=== PATIENT | female | born 1975 | race Asian ===

== ENCOUNTER 2019-04-21 05:45 | Day surgery (SDC) | payer BC ==
[~2019-04-21] VITALS: Ht 154.9 cm; Wt 84.4 kg
[2019-04-21 06:43] LABS: HCG,QUAL RESULT NEGATIVE (NEGATIVE)
[2019-04-21] MEDS ORDERED: MIDAZOLAM HCL 5 MG/5 ML VIAL IVP ONE (07:40)
[2019-04-21] MEDS ORDERED: PROPOFOL 200MG/ 20ML VIAL (DIPRIVAN) IV ONE (07:40)
[2019-04-21] MEDS ORDERED: ONDANSETRON HCL 4 MG/2 ML VIAL IVP ONE (07:40)
[2019-04-21] MEDS ORDERED: NS 1000 ML IV.SOLN IV ONE (07:40)
[2019-04-21] MEDS ORDERED: SEVOFLURANE 15 MIN GAS INH ONE (07:40)
[2019-04-21] MEDS ORDERED: KETOROLAC TROMETHAMINE 30 MG VIAL IVP ONE (07:40)
[2019-04-21] MEDS ORDERED: NS IRRIG SOLN 1000 ML IR ONE (07:40)
[2019-04-21] MEDS ORDERED: fentaNYL CITRATE/PF 100 MCG/2 ML AMP IVP ONE (07:40)
[2019-04-21] MEDS ORDERED: LR 1,000 ML IV SCH (08:07)
[2019-04-21] MEDS ORDERED: MORPHINE 4 MG/ML INJ. SYRINGE IVP PRN ×3 (08:15)
[2019-04-21] MEDS ORDERED: METOCLOPRAMIDE HCL 10 MG/2 ML VIAL IVP PRN (08:15)
[2019-04-21] MEDS ORDERED: OXYCODONE/ACETAMINOPHEN 5-325 TABLET PO PRN ×2 (08:30)
[2019-04-21] MEDS ORDERED: ONDANSETRON HCL 4 MG/2 ML VIAL IVP PRN (08:30)
[2019-04-21] MEDS ORDERED: IBUPROFEN 800 MG TABLET PO PRN (08:30)
[2019-04-21] MEDS ORDERED: MORPHINE 4 MG/ML INJ. SYRINGE ONE (09:10)
[2019-04-21 11:17] VITALS: BP_SYST 115
== END 2019-04-21 10:25 | disposition home or self-care (01) ==
LOC: SDS 05:45 → SMU 05:45 → SDS 10:25
PROVIDERS: ATTEND Obstetrics & Gynecology
DX: N92.0 Excessive and frequent menstruation with regular cycle (principal); N84.0 Polyp of corpus uteri; E66.3 Overweight; F41.9 Anxiety disorder, unspecified; E03.9 Hypothyroidism, unspecified; F51.05 Insomnia due to other mental disorder; Z79.899 Other long term (current) drug therapy; Z80.3 Family history of malignant neoplasm of breast; Z82.49 Family history of ischemic heart disease and other diseases of the circulatory system
CPT/HCPCS: 58563; 84703; 88305; C1819; J1885; J2250; J2270; J2405; J2704; J3010; J7030; J7120